=== PATIENT | female | born 1940 | race Caucasian/White ===

== ENCOUNTER 2017-01-26 12:27 | Outpatient (CLI) | payer OTHER ==
--- NOTE | 2017-01-26 13:40 | DIAGNOSTIC IMAGING REPORT ---
PROCEDURE: XR SKULL LESS THAN 4 VIEWS INDICATION: PRIOR BRAIN SURGERY, CHECK FOR LOSS ARTIFACT TECHNIQUE: PA and lateral skull COMPARISON: None. FINDINGS: Frontal marvin holes are present. No evidence of metallic artifact. IMPRESSION: 1. No metallic artifacts.
--- NOTE | 2017-01-26 15:00 | DIAGNOSTIC IMAGING REPORT ---
PROCEDURE: MR BRAIN WITHOUT CONTRAST INDICATION: FALL AT HOME,SEQUELA TECHNIQUE: Multiplanar multisequence MRI imaging of the brain without contrast. COMPARISON: None. FINDINGS: There is extensive periventricular small-vessel ischemic disease with small infarcts of the basal ganglia and the brain stem. No restricted diffusion to suggest acute ischemia. No evidence of acute or chronic intraparenchymal or extra-axial hemorrhage. No mass, mass effect, or midline shift. Normal signal in the visible bones. right frontal marvin holes. The sinuses are normally aerated. Visible extracranial soft tissues including the orbits are normal. IMPRESSION: 1. 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
== END 2017-01-26 23:00 ==
LOC: MRI SRH 12:27
DX: I67.82 Cerebral ischemia (principal); I63.9 Cerebral infarction, unspecified